=== PATIENT | male | born 1995 | race Caucasian/White ===

== ENCOUNTER 2025-07-17 16:32 | Emergency (ER) | payer OTHER, SELFPAY ==
--- NOTE | ~2025-07-17 | CT_ITS ---
CT pelvis w con Clinical History: groin abscess . Comparison: None Technique: Axial images lung bases to symphysis pubis 100 mL IV contrast Coronal, sagittal reformats CT images acquired with automatic exposure control for dose reduction DLP: 2063 mGy-cm Findings: Right groin and upper medial thigh skin thickening/cellulitis without underlying abscess or fluid collection or subcutaneous emphysema. No acute abnormality within visualized pelvic viscera. IMPRESSION: 1. Right groin cellulitis. 2. No underlying abscess. Reviewed, dictated and finalized at location R. NT [employer]
[2025-07-17 16:34] VITALS: BP 146/77; PULSE 95; RESP 18; TEMP 36.6; O2SAT 100
[2025-07-17 20:43] LABS: Hematocrit 49.5 % (42.0-52.0); Hemoglobin 16.4 g/dL (14.0-18.0); Immature Granulocyte Percent A 0.4 % (0-0.5); Lymphocytes Absolute Auto 2.89 K/mm3 (0.9-3.2); Mean Corpuscular HGB Conc 33.1 g/dl (32-36); Mean Corpuscular Hemoglobin 28.2 pg (26-34); Mean Corpuscular Volume 85.2 fl (80-100); Nucleated Red Blood Cells Absolute Auto 0.000 K/mm3 (0.0-0.012); Nucleated Red Blood Cells Perc 0.0 % (0.0-0.2); Platelet Count Result 225 k/mm3 (150-375); Red Blood Count 5.81 M/mm3 (4.6-6.20); White Blood Count 11.7 K/mm3 (4.5-10.0)
[2025-07-17 20:59] LABS: Alanine Aminotransferase 32 U/L (6-50); Albumin Level 4.5 g/dL (3.5-5.1); Alkaline Phosphatase 84 U/L (38-126); Anion Gap 7 mmol/L (4-12); Aspartate Amino Transferase 32 U/L (17-59); Bilirubin,Total 1.1 mg/dL (0.2-1.3); Blood Urea Nitrogen 11 mg/dL (9-20); CRP 8.9 mg/dL (<1.0); Calcium 8.9 mg/dL (8.4-10.2); Carbon Dioxide 23 mmol/L (22-30); Chloride 102 mmol/L (98-107); Estimated CRCL calculation 189 ml/min; Estimated Glomerular Filt Rate > 60; Glucose 88 mg/dL (65-110); Potassium 4.2 mmol/L (3.4-5.0); Sodium 132 mmol/L (137-145); Total Protein 8.0 g/dL (6.3-8.2)
[2025-07-17] MEDS: CEPHALEXIN 500 MG CAPSULE PO (23:17)
--- NOTE | 2025-07-17 23:39 | ED_ITS ---
HPI - General Adult General Chief complaint: Skin/Abscess/Foreign Body Stated complaint: R thigh abscess Time Seen by Provider: 07/17/25 16:58 History of Present Illness HPI narrative: 30-year-old male presenting with concerns for a skin infection involving the right inguinal fold that began 2 nights ago as a small red spot. The redness has spread rapidly since. Denies fevers/chills, chest pain/shortness of breath, numbness or tingling. Related Data Allergies Allergy/AdvReac Type Severity Reaction Status Date / Time No Known Allergies Allergy Verified 07/17/25 16:34 Review of Systems 2 Review of Systems: All systems reviewed & are unremarkable except as noted in HPI and below Exam 2 Narrative: GENERAL: No acute distress. HEAD: Normocephalic, atraumatic. EYES: PERRLA and EOMI. ENT: Nares clear, no rhinorrhea or epistaxis. Mucous membranes moist. Oropharynx without tonsillar hypertrophy exudate or other lesions. Bilateral TMs pearly lindsey non-bulging NECK: Supple. No adenopathy or masses. No carotid bruits or JVD CHEST: Clear to auscultation. No respiratory distress. No wheezes rales or rhonchi HEART: Regular rate and rhythm. No murmur heard. Normal peripheral pulses. ABDOMEN: Soft, nontender, nondistended, normal active bowel sounds. EXTREMITIES: Small raised purple papule in right inguinal fold with [id number] surrounding redness extending down his leg. Neurovascular intact. No fluctuance or drainage. TTP. SKIN: Warm, dry, no rash. NEURO: No focal deficits. Alert and oriented x3. PSYCH: Normal mood and affect Course Vital Signs Vital signs: Vital Signs Temperature 97.8 F 07/17/25 16:34 Pulse Rate 95 07/17/25 16:34 Respiratory Rate 18 07/17/25 16:34 Blood Pressure 146/77 H 07/17/25 16:34 Pulse Oximetry 100 07/17/25 16:34 Oxygen Delivery Room Air 07/17/25 16:34 Temperature 97.8 F 07/17/25 16:34 Pulse Rate 95 07/17/25 16:34 Respiratory Rate 18 07/17/25 16:34 Blood Pressure 146/77 H 07/17/25 16:34 Pulse Oximetry 100 07/17/25 16:34 Oxygen Delivery Room Air 07/17/25 16:34 MDM MDM Narrative Medical decision making narrative: 30-year-old male presenting with concerns for a skin infection involving the right inguinal fold that began 2 nights ago as a small red spot. The redness has spread rapidly since. Denies fevers/chills, chest pain/shortness of breath, numbness or tingling. Upon my initial assessment patient appears nontoxic with stable vitals including no fevers. Patient's symptoms and exam are consistent with uncomplicated cellulitis. Area is warm, erythematous, and tender without fluctuance, crepitus, or necrotic changes to suggest abscess, necrotizing soft tissue infection, or deeper space involvement. Imaging demonstrates right groin and medial upper thigh edema or cellulitis with soft tissue abscess or emphysema. No streaking lymphangitis. No signs of systemic toxicity: Patient is afebrile, hemodynamically stable, and appears nontoxic. Neurovascular exam of the affected limb is normal. No history of immunocompromise, diabetes complications, or significant risk factors for MRSA P on routine community exposure. No concern for septic joint or osteomyelitis based on the localization of symptoms, range of motion, and absence of bony tenderness. Based on overall presentation, patient is reasonable candidate for outpatient management with appropriate antibiotics, limb elevation, and strict return precautions. Patient demonstrates understanding of signs that warrant re- evaluation, including worsening redness, fever, spreading fashion, or failure to improve. Given reasons to return. Differential Diagnosis Differential Diagnosis: Differential diagnostic considerations for skin/abscess/foreign body issues include abscess of skin or subcutaneous tissue, viral exanthem, dermatophytosis, urticaria, herpes zoster, allergic reaction to drug, cellulitis, eczema, insect bites, impetigo, contact dermatitis, vasculitis. Lab Data [facility] Lab Attestation statement: I personally reviewed the patient's lab results. 07/17/25 20:38 07/17/25 20:38 Labs: Lab Results 07/17/25 Range/Units 20:38 WBC 11.7 H (4.5-10.0) K/mm3 RBC 5.81 (4.6-6.20) M/mm3 Hgb 16.4 (14.0-18.0) g/dL Hct 49.5 (42.0-52.0) % MCV 85.2 (80-100) fl MCH 28.2 (26-34) pg MCHC 33.1 (32-36) g/dl RDW 14.4 (11.5-14.5) % Plt Count 225 (150-375) k/mm3 MPV 11.5 H (7.4-10.4) fl Immature Gran % (Auto) 0.4 (0-0.5) % Neut % (Auto) 66.9 (45.5-73.1) % Lymph % (Auto) 24.7 (18.3-44.2) % [place] % (Auto) 7.0 (2.6-8.5) % Eos % (Auto) 0.7 (0-4.4) % Baso % (Auto) 0.3 (0.2-1.2) % Lymph # (Auto) 2.89 (0.9-3.2) K/mm3 [place] # (Auto) 0.8 H (0.1-0.6) K/mm3 Eos # (Auto) 0.1 (0-0.3) K/mm3 Baso # (Auto) 0.0 (0.0-0.1) K/mm3 Abs Immat Gran (auto) 0.05 H (0.00-0.031) K/mm3 Absolute Neuts (auto) 7.8 H (1.3-6.7) K/mm3 Absolute Nucleated RBC 0.000 (0.0-0.012) K/mm3 Nucleated RBC % 0.0 (0.0-0.2) % Sodium 132 L (137-145) mmol/L Potassium 4.2 (3.4-5.0) mmol/L Chloride 102 (98-107) mmol/L Carbon Dioxide 23 (22-30) mmol/L Anion Gap 7 (4-12) mmol/L BUN 11 (9-20) mg/dL Creatinine 0.92 (0.7-1.3) mg/dL Estim Creat Clear Calc 189 ml/min Estimated GFR > 60 (59 - ) Glucose 88 (65-110) mg/dL Calcium 8.9 (8.4-10.2) mg/dL Total Bilirubin 1.1 (0.2-1.3) mg/dL AST 32 (17-59) U/L ALT 32 (6-50) U/L Alkaline Phosphatase 84 (38-126) U/L C-Reactive Protein 8.9 H (<1.0) mg/dL Total Protein 8.0 (6.3-8.2) g/dL Albumin 4.5 (3.5-5.1) g/dL Imaging Data Attestation: I personally reviewed and interpreted this imaging study as follows: Radiologist's impression: ITS Impressions Pelvis CT 07/18/25 09:02 IMPRESSION: 1. Right groin cellulitis. 2. No underlying abscess. Discharge Plan Discharge Clinical Impression: Cellulitis Patient Disposition: Home Condition: Stable Instructions: Antibiotic Form, Cellulitis (ED) Additional Instructions: Return if symptoms worsen or concerns: any increase in redness, swelling, pain or fever over 101 Take antibiotics as directed. Take anti-inflammatories (Aleve, Ibuprofen, Naproxen, etc) and Tylenol as needed for pain. Follow-up with primary care provider. Patient Language: Samoan Prescriptions: New cephalexin 500 mg capsule 500 mg PO Q6H Qty: 27 0RF Follow-up/Referrals: PHYSICIAN NOT ON STAFF,NONSTAFF [Primary Care Provider]
== END 2025-07-17 23:31 | disposition home or self-care (01) ==
DX: L03.314 Cellulitis of groin (principal)
CPT/HCPCS: 36415; 72193; 80053; 85025; 86140; 99284; A9270; Q9967